=== PATIENT | male | born 1940 | race Caucasian/White ===

== ENCOUNTER 2016-08-06 13:03 | Inpatient (IN) | payer MEDICARE, BC ==
[~2016-08-06] VITALS: Ht 182.9 cm; Wt 100.7 kg
[2016-08-06] MEDS ORDERED: ATOR20TA PO (13:17)
[2016-08-06] MEDS ORDERED: RIVA10TA PO (13:17)
--- NOTE | 2016-08-06 13:25 | NUR ---
Pt ambulatory to bed 1b, pt placed on monitor and ekg done, dr galeana at bedside for exam.
[2016-08-06 13:33] LABS: HEMATOCRIT 35.1 % (40.0-50.0); HEMOGLOBIN 11.5 g/dL (14.0-18.0); MEAN CORPUSCULAR HEMOGLOBIN 31.5 uug (27.0-31.0); MEAN CORPUSCULAR HGB CONC 33 g/dL (32.0-37.0); PLATELET COUNT (AUTO) 242 K/uL (150-450); RED BLOOD CELL COUNT(AUTO) 3.66 MIL/uL (4.70-6.10); RED CELL DISTRIBUTION WIDTH 13.7 % (11.5-14.5); WHITE BLOOD COUNT (AUTO) 7.3 K/uL (4.0-11.2)
[2016-08-06 13:48] LABS: CREATININE 0.9 mg/dL (0.6-1.3); POTASSIUM 3.6 mmol/L (3.5-5.1)
[2016-08-06 13:52] LABS: ALBUMIN 3.4 g/dL (3.4-5.0); BILIRUBIN,DIRECT 0.3 mg/dL (0.0-0.2); BILIRUBIN,TOTAL 1.1 mg/dL (0.2-1.0); TROPONIN I 0.106 ng/mL (0.00-0.056)
[2016-08-06 13:59] LABS: LACTIC ACID 1.6 mmol/L (0.4-2.0)
[2016-08-06 14:12] LABS: EOSINOPHILS % (MANUAL) 1 % (0-8); LYMPHOCYTES % (MANUAL) 37 % (20-40); MONOCYTES % (MANUAL) 2 % (2-10); NEUTROPHILS % (MANUAL) 60 % (42-75); PLATELET ESTIMATE ADEQUATE
[2016-08-06] MEDS ORDERED: LORAZEPAM 2 MG/1 ML VIAL IV ONE (14:15)
--- NOTE | 2016-08-06 14:22 | NUR ---
PT STATES BEING ANXIOUS AND LIKE TO HAVE MD DICK AWARE. ATIVAN ORDERED AND ADMINESTERED.
[2016-08-06] MEDS ORDERED: LORAZEPAM 2 MG/1 ML VIAL ONE (14:25)
[2016-08-06] MEDS ORDERED: ASPIRIN 81 MG TAB.CHEW PO ONE (14:30)
--- NOTE | 2016-08-06 14:30 | NUR ---
BELONGING LIST COMPLETED, AND PLACED IN THE CHART. PT NOT CANDIDATE FOR MRSA.
[2016-08-06] MEDS ORDERED: ASPIRIN 81 MG TAB.CHEW ONE (14:37)
[2016-08-06] MEDS ORDERED: HYDR-548 PO (14:38)
[2016-08-06] MEDS ORDERED: TERA2CAP4 PO (14:38)
[2016-08-06] MEDS ORDERED: CARV3.122 PO (14:38)
[2016-08-06] MEDS ORDERED: LORA1TAB PO (14:38)
--- NOTE | 2016-08-06 15:03 | NUR ---
CHUN ADMITTING CORPORATE COMPLIANCE OFFICER (FOR DR HERR) AT THE BEDSIDE.
--- NOTE | 2016-08-06 15:30 | NUR ---
ADMITTED HOME VIA ER A 76 YO MALE ACCOMPANIED BY WITH ADM DX OF ELEVATED TROPONIN ALERT AND ORIENTED X3. ROUTINE ADMISSION ASSESSMENT INITIATED. ADMISSION ORDERS RECEIVED FROM CREW LEADER GLUING. SEE NOTES AND ORDERS
[2016-08-06] MEDS ORDERED: MORPHINE SULFATE 2 MG/1 ML DISP.SYRIN IV PRN (15:45)
[2016-08-06] MEDS ORDERED: ACETAMINOPHEN 325 MG TABLET PO PRN (15:45)
[2016-08-06] MEDS ORDERED: ONDANSETRON 4 MG/2 ML VIAL IV PRN (15:45)
[2016-08-06] MEDS ORDERED: MAGNESIUM HYDROXIDE 30 ML LIQUID UDC PO PRN (15:45)
[2016-08-06] MEDS ORDERED: HYDROCODONE/APAP 10-325 MG TABLET PO PRN (16:00)
[2016-08-06 16:05] VITALS: BP 144/89
[2016-08-06] MEDS: AMLODIPINE 5 MG TABLET PO SCH (16:38)
[2016-08-06] MEDS: PANTOPRAZOLE SODIUM 40 MG TABLET.DR PO SCH (16:38)
[2016-08-06] MEDS: CLOTRIMAZOLE/BETAMET DIPROP CREAM 15 GM TUBE TOP SCH ×2 (16:38→20:27)
[2016-08-06] MEDS: CARVEDILOL 3.125 MG TABLET PO SCH (16:38)
[2016-08-06 18:40] LABS: *BILIRUBIN,URIN NEGATIVE (NEGATIVE); *BLOOD, URINE Trace-intact (NEGATIVE); *CLARITY,URINE CLEAR (CLEAR); *COLOR,URINE YELLOW (YELLOW); *KETONES,URINE NEGATIVE (NEGATIVE); *PROTEIN,URINE NEGATIVE (NEGATIVE); *UROBILINOGEN,URINE 0.2 E.U./dl (NORMAL); LEUKOCYTE ESTERASE ,URINE NEGATIVE (NEGATIVE); NITRITE, URINE NEGATIVE (NEGATIVE); UGLUCOSE NEGATIVE (NEGATIVE)
[2016-08-06 19:10] LABS: WBC,URINE 0-3 /HPF (0-3)
[2016-08-06 19:11] LABS: MUCUS,URINE FEW /LPF (0-FEW)
[2016-08-06 20:00] VITALS: BP 112/72
--- NOTE | 2016-08-06 20:20 | NUR ---
PT'S A/A/O X4 DENIED OF PAIN OR ANY DISCOMFORT.TELEMETRY'S SR 90/MIN.EKG'S DONE ORDER BY RT;UPDATED THE PLAN OF CARE TO PT AND EDUCATED TO PT;HE VERBALIZED UNDERSTANDING AND COOPERATIVE NOTED.CONTINUED MONITORING TO PT.KEPT CALL-LIGHT WITHIN REACH.
[2016-08-06] MEDS: ATORVASTATIN 20 MG TABLET PO SCH (20:23)
--- NOTE | 2016-08-06 20:25 | NUR ---
AMEND DATA:TELEMETRY'S A.FIB CONTROL.
[2016-08-06] MEDS: TERAZOSIN 2 MG CAPSULE PO SCH (20:26)
[2016-08-06] MEDS: LORAZEPAM 1 MG TABLET PO PRN (20:26)
[2016-08-06] MEDS ORDERED: LORAZEPAM 1 MG TABLET PO SCH (21:00)
[2016-08-07] VITALS: BP 108/57
--- NOTE | 2016-08-07 | NUR ---
PT AMBULATE TO BATHROOM FOR URINATION,DENIED OF PAIN OR ANY DISCOMFORT.APPLIED SCD TO BLE.TELEMETRY'S A.FIB CONTROL NOTED.KEPT CALL-LIGHT WITHIN REACH.CONTINUED MONITORING TO PT.
--- NOTE | 2016-08-07 01:45 | NUR ---
GOT THE CRITICAL LAB VALUE FROM [facility]/ LAB FOR TROPONIN 0.134/READ BACK AND CALLED [employer],SPOKE TO WHO WAS COMMUNICATIONS OFFICER,NOTIFIED HER ABOUT LAB RESULT AND SHE'S AWARE.PT'S SLEEPING AT THIS TIME;TELEMETRY'S A.FIB CONTROL NOTED.
--- NOTE | 2016-08-07 01:53 | NUR ---
PER RT STATED THAT PT REFUSED TO DO EKG ORDER AT THIS TIME,WE WENT TO ROOM AND PT STATED THAT"I'M VERY TIRED,PLEASE LET ME SLEEP,AND DO IT IN THE MORNING".CONTINUED MONITORING TO PT. PT DENIED OF CHEST PAIN.
[2016-08-07 04:00] VITALS: BP 109/57
--- NOTE | 2016-08-07 05:27 | NUR ---
PT AMBULATED TO BATHROOM FOR URINATION WITHOUT O2 AND GOT THE REPORT FROM KRAFTWERK THAT PT HAD V.TAC 8-6 BEATS AT THIS TIME;CHECKED PT AND GOT V/S RECORD;PT STATED SHIRA"I'M VERY OKAY";EDUCATED TO PT DUE TO HIS EKG;PT VERBALIZED UNDERSTANDING AND STATED THAT"CAN I GET MY ATIVAN".UNABLE TO GET ATIVAN 1 MG FROM THE CABINET DUE TO UNABLE TO OPEN;NOTIFIED YURI/CHARGE NURSE AND SHE'S ABLE TO OVERRIDE ATIVAN 0.5 MG X2 TABS DUE TO PT REQUESTED. ATIVAN 1(0.5 MG X2) GAVE TO PT;EDUCATED TO PT,HE TOLERATED WELL NOTED.CONTINUED O2 NC 2 LPM.CONTINUED MONITORING TO PT.CALL-LIGHT WITHIN REACH.
[2016-08-07] MEDS: LORAZEPAM 1 MG TABLET PO PRN ×3 (05:29→17:49)
[2016-08-07 05:30] VITALS: BP 137/85
[2016-08-07] MEDS ORDERED: LORAZEPAM 0.5 MG TABLET ONE (05:35)
--- NOTE | 2016-08-07 06:05 | NUR ---
PT'S COMFORTABLE ON BED;DENIED OF PAIN OR ANY DISCOMFORT,STILL CONTINUED MONITORING TO PT REGARDING PT HAD V.TAC WHILE GETTING OUT TO BATHROOM NOTED.
[2016-08-07] MEDS: PANTOPRAZOLE SODIUM 40 MG TABLET.DR PO SCH (06:14)
[2016-08-07 07:03] LABS: ALBUMIN 3.1 g/dL (3.4-5.0); BILIRUBIN,TOTAL 0.9 mg/dL (0.2-1.0); CALCIUM 8.3 mg/dL (8.5-10.1); CREATININE 0.8 mg/dL (0.6-1.3); MAGNESIUM 1.9 mg/dL (1.8-2.4); PHOSPHOROUS 3.3 mg/dL (2.5-4.9); POTASSIUM 3.7 mmol/L (3.5-5.1); TOTAL PROTEIN, SERUM 6.5 g/dL (6.4-8.2)
[2016-08-07 07:19] LABS: THYROID STIMULATING HORMONE 1.408 mIU/mL (0.358-3.740)
--- NOTE | 2016-08-07 08:00 | NUR ---
awake alert and oriented, denies of pain , on 2l/nc, tele afib controlled, explained plan of care- verbalized understanding, refused dvt pumps, left lower leg dsg dry and intact, call lite within reach
[2016-08-07] MEDS: ASPIRIN EC 81 MG TABLET.DR PO SCH (08:51)
[2016-08-07] MEDS: AMLODIPINE 5 MG TABLET PO SCH (08:52)
[2016-08-07] MEDS: CARVEDILOL 3.125 MG TABLET PO SCH ×2 (08:52→17:45)
[2016-08-07] MEDS: CLOTRIMAZOLE/BETAMET DIPROP CREAM 15 GM TUBE TOP SCH ×2 (08:56→20:33)
[2016-08-07 09:24] LABS: HEMATOCRIT 33.8 % (40.0-50.0); HEMOGLOBIN 11.1 g/dL (14.0-18.0); MEAN CORPUSCULAR HEMOGLOBIN 31.4 uug (27.0-31.0); MEAN CORPUSCULAR HGB CONC 33 g/dL (32.0-37.0); MEAN CORPUSCULAR VOLUME 95.9 fL (82.0-92.0); PLATELET COUNT (AUTO) 231 K/uL (150-450); RED BLOOD CELL COUNT(AUTO) 3.52 MIL/uL (4.70-6.10); RED CELL DISTRIBUTION WIDTH 13.4 % (11.5-14.5)
[2016-08-07 09:25] LABS: WHITE BLOOD COUNT (AUTO) 5.3 K/uL (4.0-11.2)
--- NOTE | 2016-08-07 09:30 | NUR ---
up to BR and had episode of v tach-while in the BR pt asymptomatic,placed on long tubing so can have 02 while in the BR
--- NOTE | 2016-08-07 10:00 | NUR ---
MUKESH Bernardo made aware of episodes of V tach- to be seen by metallurgical specialist today
[2016-08-07 11:17] VITALS: BP 121/75
--- NOTE | 2016-08-07 11:30 | NUR ---
medicated with Ativan 1 mg for c/o anxiety- with relief
[2016-08-07] MEDS ORDERED: ESCITALOPRAM OXALATE 10 MG TABLET PO SCH (11:45)
[2016-08-07 11:46] LABS: EOSINOPHILS % (MANUAL) 1 % (0-8); LYMPHOCYTES % (MANUAL) 47 % (20-40); MONOCYTES % (MANUAL) 8 % (2-10); NEUTROPHILS % (MANUAL) 44 % (42-75)
[2016-08-07 11:47] LABS: PLATELET ESTIMATE ADEQUATE
[2016-08-07 12:17] LABS: FOLIC ACID 18.4 NG/ML (8.6-58.9)
--- NOTE | 2016-08-07 12:30 | NUR ---
seen by Dr Hernandez with orders
[2016-08-07 15:13] VITALS: BP 123/75
[2016-08-07] MEDS: RIVAROXABAN 10 MG TABLET PO SCH (17:46)
--- NOTE | 2016-08-07 18:13 | NUR ---
resting in bed, no more episodes of v tach seen, tele afib controlled, all needs attended and met, call lite within reach
[2016-08-07] MEDS ORDERED: POTASSIUM CHLORIDE 20 MEQ TAB.PRT.SR PO ONE (19:00)
[2016-08-07 20:00] VITALS: BP 119/72
[2016-08-07] MEDS: TERAZOSIN 2 MG CAPSULE PO SCH (20:33)
[2016-08-07] MEDS: ATORVASTATIN 20 MG TABLET PO SCH (20:33)
[2016-08-07] MEDS: ZOLPIDEM 5 MG TABLET PO PRN (20:37)
[2016-08-08 00:39] VITALS: BP 104/63
[2016-08-08 04:30] VITALS: BP 125/76
--- NOTE | 2016-08-08 06:00 | NUR ---
END OF SHIFT NOTE: PT SLEPT MOST SHIFT. WAS GIVEN AMBIEN REQUESTED AND PRESCRIBED. ON TELE MONITOR- CONTROLLED AFIB WITH SOME PVCS, BUNDLE BRANCH. DENIED PAIN, IN NO ACUTE DISTRESS. SAFETY MAINTAINED, CALL LIGHT WITHIN REACH.
[2016-08-08] MEDS: PANTOPRAZOLE SODIUM 40 MG TABLET.DR PO SCH (06:46)
[2016-08-08 07:13] LABS: ALBUMIN 3.3 g/dL (3.4-5.0); CALCIUM 8.9 mg/dL (8.5-10.1); CREATININE 0.8 mg/dL (0.6-1.3); MAGNESIUM 2.1 mg/dL (1.8-2.4); PHOSPHOROUS 3.1 mg/dL (2.5-4.9); POTASSIUM 3.9 mmol/L (3.5-5.1); TOTAL PROTEIN, SERUM 6.8 g/dL (6.4-8.2)
[2016-08-08 07:19] LABS: BASOPHILS % (AUTO) 0.5 % (0.0-2.0); EOSINOPHILS # (AUTO) 0.2 K/uL (0.0-0.7); EOSINOPHILS % (AUTO) 3.4 % (0.0-7.0); HEMATOCRIT 35.8 % (40.0-50.0); HEMOGLOBIN 11.7 g/dL (14.0-18.0); LYMPHOCYTES # (AUTO) 2.4 K/uL (0.8-4.8); LYMPHOCYTES % (AUTO) 40.4 % (20.5-51.5); MEAN CORPUSCULAR HEMOGLOBIN 31.3 uug (27.0-31.0); MEAN CORPUSCULAR HGB CONC 33 g/dL (32.0-37.0); MEAN CORPUSCULAR VOLUME 95.3 fL (82.0-92.0); MONOCYTES # (AUTO) 0.5 K/uL (0.1-1.30); NEUTROPHILS # (AUTO) 2.9 K/uL (1.8-8.9); NEUTROPHILS % (AUTO) 47.7 % (38.5-71.5); PLATELET COUNT (AUTO) 237 K/uL (150-450); RED BLOOD CELL COUNT(AUTO) 3.75 MIL/uL (4.70-6.10)
[2016-08-08] MEDS ORDERED: CARVEDILOL 3.125 MG TABLET PO SCH (08:00)
--- NOTE | 2016-08-08 08:00 | NUR ---
awake alert and oriented, denies of chest pain, no shortness of breath noted, Tele a fib 80's, medications instructions given- verbalized understanding, safety measures maintained, call lite within reach
[2016-08-08] MEDS: CARVEDILOL 6.25 MG TABLET PO SCH ×2 (08:23→17:44)
[2016-08-08] MEDS: ESCITALOPRAM OXALATE 10 MG TABLET PO SCH (08:24)
[2016-08-08] MEDS: ASPIRIN EC 81 MG TABLET.DR PO SCH (08:24)
[2016-08-08] MEDS: CLOTRIMAZOLE/BETAMET DIPROP CREAM 15 GM TUBE TOP SCH ×2 (08:26→21:04)
[2016-08-08 08:45] LABS: EOSINOPHILS % (MANUAL) 1 % (0-8); LYMPHOCYTES % (MANUAL) 34 % (20-40); MONOCYTES % (MANUAL) 7 % (2-10); NEUTROPHILS % (MANUAL) 58 % (42-75)
[2016-08-08 08:46] LABS: PLATELET ESTIMATE ADEQUATE
--- NOTE | 2016-08-08 10:30 | NUR ---
seen by case management for transfer to [facility] for angiogram- will be arranged
[2016-08-08 11:34] VITALS: BP 111/59
[2016-08-08] MEDS ORDERED: Ondansetron Hcl/Pf IV (13:40)
[2016-08-08] MEDS ORDERED: PANT40TA2 PO (13:40)
[2016-08-08] MEDS ORDERED: ASPI-618 PO (13:40)
[2016-08-08] MEDS ORDERED: CARV6.252 PO (13:40)
[2016-08-08] MEDS ORDERED: ATOR20TA PO (13:40)
[2016-08-08] MEDS ORDERED: MAGN400O4 PO (13:40)
[2016-08-08] MEDS ORDERED: LORA-259 PO (13:40)
[2016-08-08] MEDS ORDERED: Zolpidem Tartrate PO (13:40)
[2016-08-08] MEDS ORDERED: RIVA10TA PO (13:40)
[2016-08-08] MEDS ORDERED: HYDR-548 PO (13:40)
[2016-08-08] MEDS ORDERED: ESCI10TA PO (13:40)
[2016-08-08] MEDS ORDERED: Acetaminophen PO (13:40)
[2016-08-08] MEDS ORDERED: Terazosin Hcl PO (13:40)
[2016-08-08] MEDS ORDERED: CLOT15CR36 TOP (13:40)
[2016-08-08] MEDS ORDERED: Morphine Sulfate IV (13:40)
--- NOTE | 2016-08-08 13:52 | NUR ---
Discharge: Pt will be transferred to [facility] [[address] [place] [address] ]. Elza from bed control arranged and confirmed the admission. Dr. Green accepted the patient [[phone]]. [place] arranged transportation and will pharmacy picking tech at 1500. Spoke with patient who is aware and agreeable with transfer. Charge nurse, Yareli and RNAmber made aware. Addendum: 08/08/16 at 1359 by FREDO CHANDLER [facility] Patient room number is [id number]
--- NOTE | 2016-08-08 14:00 | NUR ---
informed by case management that pt is accepted at [facility] for coronary angiogram- order picker/assembler time at 1500. Pt aware and in agreement-
--- NOTE | 2016-08-08 14:30 | NUR ---
called [facility] and report given to Anais CABRERA
--- NOTE | 2016-08-08 14:44 | NUR ---
Trigger for nutritional assessment list: patient referred to dietitian per RN. Patient present here for chest pain. Provided cardiac diet education to patient. Will transfer to [facility] for procedure. Patient states was happy with his meal, eating 75-100% of meals. RD will be available upon request. Addendum: 08/08/16 at [address] Amended: Links added.
--- NOTE | 2016-08-08 14:49 | NUR ---
Updated Discharge: Pt will be transferred 08/09/16 to [facility] [[address] [place] [address] ]. Elza from bed control arranged and confirmed the admission. Dr. Green accepted the patient [[phone]]. Patients is assigned to [address] [place] [address] room [facility] and nurse can call to give report at [phone]. [place] arranged transportation and will slat pickler at 0830. Spoke with patient who is aware and agreeable with transfer. Charge nurse, Yareli and RN, Amber made aware.
--- NOTE | 2016-08-08 14:50 | NUR ---
informed by case management that transfer will be done tomorrow at 0830 for 11:00 procedure, pt informed.
[2016-08-08 15:28] VITALS: BP 120/71
[2016-08-08] MEDS: RIVAROXABAN 10 MG TABLET PO SCH (17:43)
--- NOTE | 2016-08-08 18:17 | NUR ---
tele afib 90's , no distress noted, resting in bed, all needs attended and met, call light within reach
[2016-08-08 20:00] VITALS: BP 108/69
[2016-08-08] MEDS: ATORVASTATIN 20 MG TABLET PO SCH (20:34)
[2016-08-08] MEDS: TERAZOSIN 2 MG CAPSULE PO SCH (20:34)
[2016-08-08] MEDS: ZOLPIDEM 5 MG TABLET PO PRN (20:35)
[2016-08-09] VITALS: BP 113/73
[2016-08-09 04:16] VITALS: BP 105/61
--- NOTE | 2016-08-09 04:51 | NUR ---
PT IN BED, ASLEEP AROUSABLE TO TOUCH. AMBIEN WAS GIVEN PER PT REQUEST AND PRESCRIBED. IN NO ACUTE SIGNS OF DISTRESS, NPO POST MIDNIGHT, PT AWARE. ON TELE, CONTROLLED AFIB 70'S. SAFETY MAINTAINED. CALL LIGHT WITHIN REACH.
--- NOTE | 2016-08-09 05:49 | NUR ---
WOUND TX DONE PRN ON LEFT LOWER LEG ABRASION. PICTURE TAKEN PER PROTOCOL, PLACED IN CHART.
[2016-08-09] MEDS: PANTOPRAZOLE SODIUM 40 MG TABLET.DR PO SCH (06:03)
[2016-08-09 06:52] LABS: BASOPHILS # (AUTO) 0.1 K/uL (0.0-0.2); BASOPHILS % (AUTO) 0.9 % (0.0-2.0); EOSINOPHILS # (AUTO) 0.2 K/uL (0.0-0.7); HEMATOCRIT 37.3 % (40.0-50.0); HEMOGLOBIN 11.9 g/dL (14.0-18.0); LYMPHOCYTES # (AUTO) 2.7 K/uL (0.8-4.8); LYMPHOCYTES % (AUTO) 37.9 % (20.5-51.5); MEAN CORPUSCULAR HGB CONC 32 g/dL (32.0-37.0); MEAN CORPUSCULAR VOLUME 96.7 fL (82.0-92.0); MONOCYTES # (AUTO) 0.6 K/uL (0.1-1.30); MONOCYTES % (AUTO) 7.9 % (0.0-11.0); NEUTROPHILS # (AUTO) 3.5 K/uL (1.8-8.9); NEUTROPHILS % (AUTO) 50.3 % (38.5-71.5); PLATELET COUNT (AUTO) 239 K/uL (150-450); RED BLOOD CELL COUNT(AUTO) 3.85 MIL/uL (4.70-6.10); RED CELL DISTRIBUTION WIDTH 13.3 % (11.5-14.5); WHITE BLOOD COUNT (AUTO) 7.1 K/uL (4.0-11.2)
[2016-08-09 07:09] LABS: ALBUMIN 3.3 g/dL (3.4-5.0); BILIRUBIN,TOTAL 0.9 mg/dL (0.2-1.0); CALCIUM 8.9 mg/dL (8.5-10.1); CREATININE 0.9 mg/dL (0.6-1.3); MAGNESIUM 2.2 mg/dL (1.8-2.4); PHOSPHOROUS 3.4 mg/dL (2.5-4.9); POTASSIUM 4.4 mmol/L (3.5-5.1); TOTAL PROTEIN, SERUM 6.9 g/dL (6.4-8.2)
[2016-08-09] MEDS: CARVEDILOL 6.25 MG TABLET PO SCH ×3 (07:35→09:12)
--- NOTE | 2016-08-09 07:43 | NUR ---
PT IS LAYING IN BED COMFORTABLY. NO S/S OF RESPIRATORY DISTRESS NOTE. ALL SAFETY NEEDS ARE MET. NO PAIN NOTED. WILL CONTINUE TO MONITOR.
[2016-08-09] MEDS: ESCITALOPRAM OXALATE 10 MG TABLET PO SCH (08:03)
[2016-08-09] MEDS: CLOTRIMAZOLE/BETAMET DIPROP CREAM 15 GM TUBE TOP SCH (08:03)
[2016-08-09] MEDS: ASPIRIN EC 81 MG TABLET.DR PO SCH (08:03)
--- NOTE | 2016-08-09 08:20 | NUR ---
CALLED [facility] TO GIVE REPORT FOR THE PATIENT, TRANSFERRED TO DEBORAH RAUSCH. PER SHALOM "I WILL CALL YOU BACK ONCE I CAN TAKE THE REPORT".
--- NOTE | 2016-08-09 08:34 | NUR ---
LATEST LABS ARE INCLUDED WITHIN FILE OF THE PT THAT WILL GO WITH THE PT. V/S WNL
--- NOTE | 2016-08-09 09:05 | NUR ---
PT IS TRANSFERRED TO [facility]. PT SHOWS NO S/S OF RESPIRATORY DISTRESS, PT IS ON ROOM AIR. NO PAIN NOTED. IV IS IN PLACE/INTACT. PT WAS ON TELE: CONTROLLED A-FIB. REPORT IS GIVEN TO DEBORAH RAUSCH AT [facility]. LABS AND TRANSFER PAPERS ARE INCLUDED IN PT'S FILE AND GIVEN TO THE TRANSFERRING NURSE. WRISTBAND IS REMOVED.
[2016-08-09 09:12] VITALS: BP 113/60
[2016-08-09 11:58] LABS: EOSINOPHILS % (MANUAL) 1 % (0-8); LYMPHOCYTES % (MANUAL) 44 % (20-40); MONOCYTES % (MANUAL) 12 % (2-10); NEUTROPHILS % (MANUAL) 43 % (42-75)
[2016-08-09 11:59] LABS: HYPOCHROMASIA 1+; PLATELET ESTIMATE ADEQUATE
[2016-08-09] MEDS: RIVAROXABAN 10 MG TABLET PO SCH (16:13)
== END 2016-08-09 09:05 | disposition short-term general hospital (02) | DRG 281 ==
LOC: ER 13:03 → TELE 14:57
PROVIDERS: ADMIT Internal Medicine; ATTEND Internal Medicine
DX: I21.4 Non-ST elevation (NSTEMI) myocardial infarction (principal); E87.0 Hyperosmolality and hypernatremia; D68.59 Other primary thrombophilia; F33.1 Major depressive disorder, recurrent, moderate; I47.2 Ventricular tachycardia; I50.32 Chronic diastolic (congestive) heart failure; F41.9 Anxiety disorder, unspecified; E66.9 Obesity, unspecified; E83.51 Hypocalcemia; E88.09 Other disorders of plasma-protein metabolism, not elsewhere classified; G89.29 Other chronic pain; N40.0 Benign prostatic hyperplasia without lower urinary tract symptoms; Z96.652 Presence of left artificial knee joint; Z90.49 Acquired absence of other specified parts of digestive tract; Z87.891 Personal history of nicotine dependence; I48.2 Chronic atrial fibrillation; B35.4 Tinea corporis; D53.9 Nutritional anemia, unspecified; E80.6 Other disorders of bilirubin metabolism; Z85.828 Personal history of other malignant neoplasm of skin; Z68.30 Body mass index [BMI] 30.0-30.9, adult; R73.9 Hyperglycemia, unspecified; F43.23 Adjustment disorder with mixed anxiety and depressed mood; I11.0 Hypertensive heart disease with heart failure; I25.10 Atherosclerotic heart disease of native coronary artery without angina pectoris; K42.9 Umbilical hernia without obstruction or gangrene; I25.2 Old myocardial infarction; F10.10 Alcohol abuse, uncomplicated; I34.0 Nonrheumatic mitral (valve) insufficiency; I36.1 Nonrheumatic tricuspid (valve) insufficiency
CPT/HCPCS: 36415; 70030-TC; 71010; 82746; 83605; 83735; 84100; 84443; 85025; 85730; 87086; 93005; 93307; 97001; A4663; J2060